=== PATIENT | female | born 1970 | race Two or more races ===

== ENCOUNTER 2020-03-09 09:07 | Outpatient (AMBR) | payer MEDICAID, SELFPAY ==
--- NOTE | 2020-03-09 19:23 | PT.ODAYNRPT ---
PT Outpatient Daily Note Date of Service: 03/09/20 OP Daily Note Visit Reasons: left knee post op Outpatient Physical Therapy Treatment Date: 03/09/20 Subjective: No c/o pain today in the knee Objective: See F/S for therex Assessment: Low tissue irritability with lunging and squatting therex today Plan: Reassess Length of Time (minutes) of Treatment: 30 Minutes Office Procedures PT Procedures PT Date of Service: 03/09/20 Therapeutic Exercise 30 minutes: Yes
== END 2020-04-04 23:59 | disposition home or self-care (01) ==
PROVIDERS: PCP Obstetrics & Gynecology; Referring Provider Obstetrics & Gynecology; Visit Provider Orthopaedic Surgery
DX: M25.562 Pain in left knee (principal)
CPT/HCPCS: 97110

== ENCOUNTER 2024-10-29 18:21 | Emergency (ER) | payer MEDICAID, SELFPAY ==
--- NOTE | 2024-10-29 18:45 | XR_ITS ---
EXAMINATION: Ankle, left 3 views . Technique: Ankle AP, oblique, lateral 3 views Date and time of exam: October 29, 2024 at 1856 hours INDICATIONS: Patient fell today with injured ankle, ankle pain. FINDINGS: No acute fracture No dislocation Plantar posterior bony calcaneal spurs IMPRESSION: No acute fracture
[2024-10-29 19:50] VITALS: BP 158/85; PULSE 79; RESP 18; TEMP 36.6; O2SAT 99; BMI 34.5
--- NOTE | 2024-10-29 19:54 | PD.EDFALL ---
ED Fall Injury RME/HPI General Chief Complaint: Fall Stated Complaint: FALL, SWOLLEN LEFT ANKLE Time Seen by Provider: 10/29/24 19:00 Arrival date/time: 10/29/24 18:21 RME / HPI RME / HPI Narrative: 54-year-old female patient came in for evaluation regarding left ankle injury. Injury sustained about earlier today patient stepped on the stairs twisting the left ankle resulting in the pain and swelling, severity moderate. Patient is able to ambulate however limping. Denies any other injury no medication was taken prior to arrival. Related Data Home Medications ?Medication ?Instructions ?Recorded ?Confirmed hydrocodone 5 mg-acetaminophen 325 1 tab PO Q12H PRN Pain (Scale 01/21/20 01/06/24 mg tablet Score 7-10) docusate sodium 250 mg capsule 250 mg PO BID 01/03/24 01/06/24 ferrous sulfate 325 mg (65 mg 325 mg PO QDAY 01/03/24 01/06/24 iron) tablet fexofenadine 180 mg tablet 180 mg PO QDAY 01/03/24 01/06/24 gabapentin 300 mg capsule 300 mg PO TID 01/03/24 01/06/24 montelukast 10 mg tablet 10 mg PO QPM 01/03/24 01/06/24 triamterene 37.5 1 cap PO QDAY 01/03/24 01/06/24 mg-hydrochlorothiazide 25 mg capsule Previous Rx's ?Medication ?Instructions ?Recorded ibuprofen 800 mg tablet 800 mg PO TID PRN pain #30 tabs 10/29/24 Allergies Allergy/AdvReac Type Severity Reaction Status Date / Time clavulanic acid (From Allergy Severe Rash Verified 10/29/24 18:26 Augmentin) erythromycin base Allergy Severe HIVES Verified 10/29/24 18:26 latex Allergy Severe Rash Verified 10/29/24 18:26 Review of Systems Review of Systems Narrative Review of Systems: Review of system reviewed and within normal limits except mentioned in HPI ED Exam Narrative Physical exam: VITAL SIGNS: Reviewed. GENERAL APPEARANCE: Alert and interactive, follows commands, no acute distress, HEAD AND FACE: Non-traumatic. ENT: PERRL, pink conjunctivitis, eyelid no trauma, Mucous membrane moist. NECK: Supple, nontender, no nuchal rigidity. RECTAL: Deferred. GENITAL: Deferred. NEUROLOGICAL: Gross motor function intact sensory function intact, Appropriate for age. MUSCULOSKELETAL: low back nontender, full range of motion. EXTREMITIES: Left ankle swelling, with tenderness no crepitus, full range of motion. Distal neurovascular status intact SKIN: Color pink, dry, no rash, no lacerations, no abrasions, no contusions. LYMPHATICS: Deferred. Course Quality Measures none Orders Category Date Time Status XR ankle comp LT min 3V Stat Exams 10/29/24 18:45 Completed Vital Signs Vital signs: Vital Signs Temperature 98 F 10/29/24 19:50 Pulse Rate 79 10/29/24 19:50 Respiratory Rate 18 10/29/24 19:50 Blood Pressure 158/85 H 10/29/24 19:50 Pulse Oximetry (%) 99 10/29/24 19:50 Oxygen Delivery Method Room Air 10/29/24 19:50 Fall MDM Narrative MDM Narrative:: 54-year-old female patient came in for evaluation regarding left ankle injury. Injury sustained about earlier today patient stepped on the stairs twisting the left ankle resulting in the pain and swelling, severity moderate. Patient is able to ambulate however limping. Denies any other injury no medication was taken prior to arrival. X-ray of the left ankle came back unremarkable. Results discussed with the patient. Roger wrap applied. Patient data External records reviewed:: None Clinical information provided by:: none Social determinants that could affect healthcare access:: none Patient has the following chronic illnesses:: Hypertension How is presenting disease/condition affected by chronic disease/condition?: uneffected by Evaluation data The following diagnostics were reviewed and interpreted by me:: radiology exam(s) Lab and/or radiology exams considered but not ordered:: None Interpretation Summary: None Medications / Prescriptions Medications or Prescriptions considered but not ordered:: None Medication administrations:: None Consultations Consultation(s) initiated? (list below): No Diagnosis Fall Differential Diagnosis: other (Ankle sprain ankle fracture ankle dislocation) Most likely diagnosis given after review of the tests above:: Ankle sprain Admission Indicated Admission indicated?: not indicated Admission Request Was there a request for admission?: No Disposition Plan Disposition Plan: Discharge Discharge Attestation Discharge Attestation: The patient was given an opportunity to ask questions and understood the discharge instructions. Discharge instructions specifically effects, indications for sooner follow up or return to the emergency department, and the expected course of current diagnosis. Patient condition: Stable Discharge Plan Plan Patient Disposition: HOME (Self Care) Disposition Comment: Stable Prescriptions/Referrals Prescriptions/Med Rec: New ibuprofen 800 mg tablet 800 mg PO TID PRN (Reason: pain) Qty: 30 0RF No Action hydrocodone-acetaminophen 5-325 mg Tablet 1 tab PO Q12H PRN (Reason: Pain (Scale Score 7-10)) fexofenadine 180 mg Tablet 180 mg PO QDAY triamterene-hydrochlorothiazid [Dyazide] 37.5-25 mg Capsule 1 cap PO QDAY ferrous sulfate 325 mg (65 mg iron) Tablet 325 mg PO QDAY gabapentin 300 mg Capsule 300 mg PO TID montelukast 10 mg Tablet 10 mg PO QPM docusate sodium 250 mg Capsule 250 mg PO BID Referrals: Alen Pack MD [Primary Care Provider] - In 1 week Problem List Clinical Impression: Left ankle sprain Patient/Caregiver Discharge Instructions Discharge Activity: activity as tolerated Education Materials: Treating Ankle Sprains, ED ROGER Wrap Additional Instructions: Thank you for the opportunity for serving you today. You are stable for discharged . You are advised to: Follow-up with your PCP in 1 to 2 days Return to ED for worsening of symptoms Increase oral fluids Take medication as prescribed Wear your Roger wrap as needed Print Language: Korean Stand Alone Forms: Peg Award Info., Patient Portal Info Letter ERNESTO/MAR Supervising Physician ERNESTO/MAR Supervising Physician: MD Lisbet
== END 2024-10-29 20:05 | disposition home or self-care (01) ==
PROVIDERS: Emergency Provider Emergency Medicine; PCP Internal Medicine
DX: S93.402A Sprain of unspecified ligament of left ankle, initial encounter (principal); X50.1XXA Overexertion from prolonged static or awkward postures, initial encounter
CPT/HCPCS: 73610; 99283

== ENCOUNTER 2025-01-18 14:28 | Emergency (ER) | payer MEDICAID, SELFPAY ==
[2025-01-18 14:30] VITALS: BMI 35.6
[2025-01-18 14:39] VITALS: BP 142/86; PULSE 87; RESP 19; TEMP 36.6; O2SAT 98
--- NOTE | 2025-01-18 14:53 | PD.EDNV ---
Nausea/Vomit./Diarrhea-RME/HPI General Chief complaint: Nausea/Vomiting/Diarrhea Stated complaint: N/V TH/FR; DIARRHEA TODAY; CHEST DISCOMFORT. Time Seen by Provider: 01/18/25 14:53 Source: patient Arrival date/time: 01/18/25 14:28 Mode of arrival: ambulatory Limitations: no limitations RME / HPI RME / HPI Narrative: 54-year-old female presents to the ED with a complaint of nausea with decreased appetite for food continues to consume fluids continues to urinate and this began Saturday. Patient tells me that she not able to hold down any kind of solid food. She developed diarrhea she described as banana looking and color. Patient would not offer as to how many times she was due to or have the episodes of diarrhea. She also developed fever and chills that began Saturday. Today she has better, complains of being dehydrated. MD complaint: nausea, vomiting, diarrhea and abdominal pain Quality: cramping, stabbing and aching Related Data Home Medications ?Medication ?Instructions ?Recorded ?Confirmed hydrocodone 5 mg-acetaminophen 325 1 tab PO Q12H PRN Pain (Scale 01/21/20 01/06/24 mg tablet Score 7-10) docusate sodium 250 mg capsule 250 mg PO BID 01/03/24 01/06/24 ferrous sulfate 325 mg (65 mg 325 mg PO QDAY 01/03/24 01/06/24 iron) tablet fexofenadine 180 mg tablet 180 mg PO QDAY 01/03/24 01/06/24 gabapentin 300 mg capsule 300 mg PO TID 01/03/24 01/06/24 montelukast 10 mg tablet 10 mg PO QPM 01/03/24 01/06/24 triamterene 37.5 1 cap PO QDAY 01/03/24 01/06/24 mg-hydrochlorothiazide 25 mg capsule Previous Rx's ?Medication ?Instructions ?Recorded ibuprofen 800 mg tablet 800 mg PO TID PRN pain #30 tabs 10/29/24 cephalexin 500 mg capsule 500 mg PO Q8H #21 caps 01/18/25 cephalexin 500 mg capsule 500 mg PO Q8H #21 caps 01/18/25 ondansetron 4 mg disintegrating 4 mg PO Q8H #10 tabs 01/18/25 tablet potassium chloride 20 mEq oral 20 meq PO QDAY #3 ea 01/18/25 packet Allergies Allergy/AdvReac Type Severity Reaction Status Date / Time clavulanic acid (From Allergy Severe Rash Verified 01/18/25 14:35 Augmentin) erythromycin base Allergy Severe HIVES Verified 01/18/25 14:35 latex Allergy Severe Rash Verified 01/18/25 14:35 Review of Systems Constitutional Constitutional: Reports system reviewed and no additional complaints, except as documented Eyes Eyes: Reports system reviewed and no additional complaints, except as documented, Denies dry eyes, Denies exophthalmos and Reports floaters Cardiovascular Cardiovascular: Denies chest pain with activity and Denies claudication ED Exam General Limitations: Present no limitations General appearance: Present alert and in no apparent distress Head Head exam: Present atraumatic Eye Eye exam: Present normal appearance, PERRL and EOMI ENT ENT exam: Present normal exam, normal oropharynx and mucous membranes moist Neck Neck exam: Present normal inspection, full ROM and trachea midline Chest Chest inspection: Present normal inspection and symmetric chest wall rise Respiratory Respiratory exam: Present normal lung sounds bilaterally Cardiovascular Cardiovascular exam: Present regular rate, normal rhythm and normal heart sounds Abdominal Exam Abdominal exam: Present soft and normal bowel sounds Extremities Exam Extremities exam: Present normal inspection and full ROM Back Exam Back exam: Present normal inspection and full ROM Neurological Exam Neurological exam: Present alert and oriented X3 Psychiatric Psychiatric exam: Present normal affect and normal mood Skin Skin exam: Present warm, dry, intact and normal color Course Course Course Narrative: CBC, CMP, UA, Quality Measures none Orders Category Date Time Status CBC Stat Lab 01/18/25 15:12 Completed Comprehensive Metabolic Panel Stat Lab 01/18/25 15:12 Completed Lipase Stat Lab 01/18/25 15:12 Completed Urinalysis Stat Lab 01/18/25 15:15 Completed Ondansetron Odt [Zofran Odt] Med 01/18/25 14:57 Discontinued 4 mg PO X1 ONE Potassium Chloride [K-Dur] Med 01/18/25 16:17 Discontinued 40 meq PO X1 ONE Vital Signs Vital signs: Vital Signs Temperature 97.9 F 01/18/25 14:39 Pulse Rate 87 01/18/25 14:39 Respiratory Rate 19 01/18/25 14:39 Blood Pressure 142/86 H 01/18/25 14:39 Pulse Oximetry (%) 98 01/18/25 14:39 Oxygen Delivery Method Room Air 01/18/25 14:39 Pulse ox room air is 98% Nausea/Vomiting/Diarrhea MDM Narrative MDM Narrative:: Patient will have 40 mL of equivalents of potassium p.o. While she is here and I will send a prescription to the pharmacy of her choice, potassium chloride 20 mEq 1 p.o. daily x 3 days. She will also have Zofran 4 mg sent to the pharmacy of her choice and she will consume that at 1 p.o. every 8 hours as needed nausea vomiting. There will also be a note for 3 days. Patient has urinary tract infection and she will have cephalexin to be consumed 1 p.o. every 8 hours x 7 days. She will be discharged in no apparent distress and the patient will follow-up with primary care physician within 1 week. If she is worse she may return here. Patient data External records reviewed:: Other (specify) (N/A) Clinical information provided by:: none (N/A) Social determinants that could affect healthcare access:: none (N/A) Patient has the following chronic illnesses:: Hypokalemia How is presenting disease/condition affected by chronic disease/condition?: no chronic disease (Hypokalemia) Evaluation data The following diagnostics were reviewed and interpreted by me:: lab results Lab and/or radiology exams considered but not ordered:: Hypokalemia Interpretation Summary: Hypokalemia/UTI Medications / Prescriptions Medications / Prescriptions considered but not ordered:: N/A Medication administrations:: Medication Administration History Discontinued Medications Ondansetron HCl (Ondansetron Odt 4 Mg Tabrap) 4 mg PO X1 ONE; Protocol Stop: 01/18/25 14:58 Last Admin: 01/18/25 15:06 Dose: 4 mg Documented By: VAHE Potassium Chloride (Potassium Chloride 20 Meq Tabcr) 40 meq PO X1 ONE Stop: 01/18/25 16:18 Last Admin: 01/18/25 16:33 Dose: 40 meq Documented By: VAHE Done Consultations Consultation(s) initiated? (list below): No Diagnosis Nausea Differential Diagnosis: gastroenteritis, clostridium difficile infection, drug-induced nausea and vomiting and dehydration Most likely diagnosis given after review of the tests above:: Hypokalemia, urinary tract infection Admission Indicated Admission indicated?: not indicated Explain why admission is indicated or not indicated:: N/A Admission Request Was there a request for admission?: No Admission Attestation Admission request attestation: N/A Disposition Plan Disposition Plan: Discharge Discharge Attestation Discharge Attestation: The patient and all family members were given an opportunity to ask questions and understood the discharge instructions. Discharge instructions specifically effects, indications for sooner follow up or return to the emergency department, and the expected course of current diagnosis. Patient condition: Stable Discharge Plan Plan Patient Disposition: HOME (Self Care) Discharge Disposition comment: Patient discharged in no apparent distress Patient condition on transfer: Stable Prescriptions/Referrals Prescriptions/Med Rec: New potassium chloride 20 mEq packet 20 meq PO QDAY Qty: 3 0RF cephalexin 500 mg capsule 500 mg PO Q8H Qty: 21 0RF cephalexin 500 mg capsule 500 mg PO Q8H Qty: 21 0RF ondansetron 4 mg tablet,disintegrating 4 mg PO Q8H Qty: 10 0RF No Action hydrocodone-acetaminophen 5-325 mg Tablet 1 tab PO Q12H PRN (Reason: Pain (Scale Score 7-10)) fexofenadine 180 mg Tablet 180 mg PO QDAY triamterene-hydrochlorothiazid [Dyazide] 37.5-25 mg Capsule 1 cap PO QDAY ferrous sulfate 325 mg (65 mg iron) Tablet 325 mg PO QDAY gabapentin 300 mg Capsule 300 mg PO TID montelukast 10 mg Tablet 10 mg PO QPM docusate sodium 250 mg Capsule 250 mg PO BID ibuprofen 800 mg tablet 800 mg PO TID PRN (Reason: pain) Qty: 30 0RF Referrals: Alen Pack MD [Primary Care Provider] - In 1 week Problem List Clinical Impression: Acute hypokalemia, Urinary tract infection Patient/Caregiver Discharge Instructions Print Language: Romansh Stand Alone Forms: Peg Award Info., Patient Portal Info Letter
[2025-01-18] MEDS: ONDANSETRON ODT 4 MG TABRAP PO (15:06)
[2025-01-18 15:45] LABS: Collection Type, Urine Clean Catch
[2025-01-18 15:45] LABS: Basophils # (Auto) 0.1 Thou/mm3 (0.0-0.2); Basophils % (Auto) 1 % (0-2.5); Eosinophils % (Auto) 0 % (0-10); Hematocrit 37.9 % (36.0-46.0); Hemoglobin 12.3 g/dL (12.0-16.0); Immature Granulocytes % (Auto) 0 % (0-0); Immature Granulocytes Auto 0.01 Thou/mm3 (0.00-0.00); Lymphocytes % (Auto) 27 % (10-50); Mean Corpuscular HGB Conc 32.5 g/dl (31.0-37.0); Mean Corpuscular Hemoglobin 23.2 pg (25.0-35.0); Mean Corpuscular Volume 72 fL (80-100); Monocytes # (Auto) 0.8 Thou/mm3 (0.0-0.8); Monocytes % (Auto) 10 % (0-12); Neutrophils # (Auto) 4.7 Thou/mm3 (1.8-7.7); Neutrophils % (Auto) 62 % (37-80); Nucleated Red Blood Cell % 0 /100 WBC (0); Platelet Count 218 Thou/mm3 (140-440); RDW Standard Deviation 40.9 fL (36.4-46.3); White Blood Count 7.5 Thou/mm3 (3.6-11.0)
[2025-01-18 16:12] LABS: Albumin, Serum 4.3 gm/dL (3.5-5.0); Albumin/Globulin Ratio 1.4 (1.2-2.2); Alkaline Phosphatase 110 U/L (46-116); Anion Gap 12 (7-16); Aspartate Amino Transferase 17 U/L (0-34); BUN/Creatinine Ratio 14 Ratio (12-20); Bilirubin,Total 0.5 mg/dL (0.3-1.2); Blood Urea Nitrogen 23 mg/dL (9-23); Carbon Dioxide 28.5 mMol/L (20.0-31.0); Chloride 98 mMol/L (98-107); Creatinine (Component) 1.6 mg/dL (0.6-1.3); Globulin 3.1 gm/dL (2.3-3.5); Glucose 91 mg/dL (74-106); Lipase 32 U/L (12-53); Osmolality,Calculated 279 (275-295); Sodium 138 mMol/L (136-145); Total Protein 7.4 gm/dL (5.7-8.2); eGFR 38 See Note
[2025-01-18 16:14] LABS: Potassium 2.7 mMol/L (3.4-5.1)
[2025-01-18 16:16] LABS: Alanine Aminotransferase 9 U/L (10-49)
[2025-01-18 16:27] LABS: Bilirubin,Urine Negative (Negative); Blood,Urine Trace (Negative); Clarity,Urine Turbid (Clear/Hazy); Color,Urine Yellow (Lt Yel-Yel); Glucose, Urine Negative (Negative); Hyaline Casts,Urine 16 /hpf (0-1); Ketones,Urine Negative (Negative); Leukocyte Esterase,Urine Positive (Negative); Nitrite,Urine Negative (Negative); PH,Urine 5.5 (5.0-7.0); Protein,Urine 1+ (Neg - Trace); RBC,Urine 14 /hpf (0-3); Specific Gravity,Urine 1.022 (1.001-1.035); Squamous Epithelial Cell,Urine 14 /hpf (0-5); WBC,Urine 30 /hpf (0-5)
[2025-01-18] MEDS: POTASSIUM CHLORIDE 20 mEq TABCR 40 MEQ PO (16:33)
[2025-01-18 17:11] VITALS: BP 123/62; PULSE 77; RESP 18; TEMP 36.6; O2SAT 99
== END 2025-01-18 17:12 | disposition home or self-care (01) ==
PROVIDERS: Physician Assistant; Emergency Provider Family Medicine; PCP Internal Medicine
DX: E87.6 Hypokalemia (principal); N39.0 Urinary tract infection, site not specified
CPT/HCPCS: 36415; 80053; 81001; 83690; 85025; 99283; Q0162; A9270

== ENCOUNTER → 2025-07-14 | Outpatient (CLI) | payer MEDICAID, SELFPAY ==
--- NOTE | 2025-07-14 14:46 | XR_ITS ---
Examination: Abdomen AP single view Technique: AP portable supine abdomen, single view Exam date and time: July 14, 2025, 1456 hours INDICATIONS: Flank pain abdominal pain beginning 4 days ago. FINDINGS: Moderate to large amounts of stool throughout the colon No renal or ureteral calculi Surgical clips upper right abdomen IMPRESSION: No renal or ureteral calculi
== END | disposition home or self-care (01) ==
PROVIDERS: PCP Internal Medicine
DX: R10.A3 Flank pain, bilateral (principal)
CPT/HCPCS: 74018